=== PATIENT | male | born 1990 | race African-American/Black ===

== ENCOUNTER 2017-10-06 20:07 | Emergency (ER) | payer SELFPAY ==
[2017-10-06] MEDS ORDERED: Bacitracin Oint 1 GM U/D Packet TOP ONE (20:25)
[2017-10-06] MEDS ORDERED: Diphtheria,Pertussis(Acell),Tetanus Vaccine 0.5 ML Syringe IM ONE (20:25)
--- NOTE | 2017-10-06 20:30 | EDM.PDOC ---
ED HPI GENERAL MEDICAL PROBLEM - General Chief Complaint: Laceration Stated Complaint: INJURY TO HEAD Time Seen by Provider: 10/06/17 20:24 Source of Information: Reports: Patient History Limitations: Reports: No Limitations - History of Present Illness INITIAL COMMENTS - FREE TEXT/NARRATIVE: HISTORY AND PHYSICAL: History of present illness: Patient is a 27-year-old male who presents to the emergency room with complaints of a head injury after falling down approximately 5 feet of stairs. He states he tripped and fell down some stairs resulting in him hitting his head and a brief loss of consciousness. He does have a 2.5 cm laceration to the left upper forehead. Currently alert and oriented. Acting appropriately. Sure of last tetanus Review of systems: As per history of present illness and below otherwise all systems reviewed and negative. Past medical history: As per history of present illness and as reviewed below otherwise noncontributory. Surgical history: As per history of present illness and as reviewed below otherwise noncontributory. Social history: No reported history of drug or alcohol abuse. Family history: As per history of present illness and as reviewed below otherwise noncontributory. Physical exam: General: Well-developed and well-nourished 27-year-old -[place] male. Alert and oriented. Nontoxic appearing and in no acute distress. HEENT: No pain or tenderness with palpation, normocephalic, pupils equal and reactive bilaterally, negative for conjunctival pallor or scleral icterus, mucous membranes moist, throat clear, neck supple, nontender, trachea midline. No drooling or trismus noted. No meningeal signs. See skin for laceration details. Lungs: Clear to auscultation, breath sounds equal bilaterally, chest nontender. Heart: S1S2, regular rate and rhythm without overt murmur Abdomen: Soft, nondistended, nontender. Negative for masses or hepatosplenomegaly. Negative for costovertebral tenderness. Pelvis: Stable nontender. Genitourinary: Deferred. Rectal: Deferred. Skin: 2.5 cm laceration to left upper forehead. Otherwise skin is intact, warm, dry. No lesions or rashes noted. Extremities: Atraumatic, negative for cords or calf pain. Neurovascular unremarkable. C-spine/Back: No pinpoint vertebral tenderness upon palpation. No crepitus, step -offs or obvious deformities. Patient is ambulatory without difficulty or deficits. He denies any numbness or tingling to his distal extremities. Denies any urinary or fecal incontinence. Neuro: Awake, alert, oriented. Cranial nerves II through XII unremarkable. Cerebellum unremarkable. Motor and sensory unremarkable throughout. Exam nonfocal. Notes: Area was anesthetized with lidocaine. Wound care was completed. 5-0 nylon, #4 interrupted sutures. Patient tolerated well. Bacitracin dressing. Head CT results pending. Head CT shows no acute intracranial abnormalities. There is a small scalp hematoma and skin laceration over the left forehead. This information was shared with the patient. Suture care was reviewed. Head injury instructions were reviewed and discussed. Patient voices understanding and is agreeable to plan of care. He denies any further questions at this time. Diagnostics: Head CT Therapeutics: Lidocaine, bacitracin, Tdap Impression: Head injury Facial laceration Plan: 1. Keep the area clean and dry. Monitor for signs of infection. Sutures to be removed in 7-10 days. 2. Tylenol and/or ibuprofen as needed for pain management. Please review the head injury instructions that were printed and discussed with you. 3. Follow-up with your primary care provider in the next 1-2 days. Return to the ED as needed and as discussed. Definitive disposition and diagnosis as appropriate pending reevaluation and review of above. Onset: Today Duration: Minutes: Location: Reports: Head forehead Pain Score (Numeric/FACES): 3 - Related Data Allergies Allergy/AdvReac Type Severity Reaction Status Date / Time No Known Allergies Allergy Verified 10/06/17 20:21 Home Meds: Home Meds . [No Known Home Meds] 10/06/17 [History] Past Medical History - Past Health History Medical/Surgical History: Denies Medical/Surgical History Social & Family History - Family History Family Medical History: Noncontributory - Tobacco Use Smoking Status *Q: Current Every Day Smoker Years of Tobacco use: 10 Packs/Tins Daily: 1 - Recreational Drug Use Recreational Drug Use: No ED ROS GENERAL - Review of Systems Review Of Systems: ROS reveals no pertinent complaints other than HPI. ED EXAM, SKIN/RASH Exam: See Below (See dictation) ED SKIN PROCEDURES - Laceration/Wound Repair Head Lac/Wound length In cm: 2.5 Appearance: Linear, Clean Anesthetic Type: Local Local Anesthesia - Lidocaine (Xylocaine): 1% Plain Local Anesthetic Volume: 4cc Skin Prep: Chlorhexidine (Hibiciens), Saline, Sterile Drape Saline Irrigation (cc's): 25 Exploration/Debridement/Repair: Wound Explored, No Foreign Material Found Closed with: Sutures Suture Size: other (5-0) # of Sutures: 4 Suture Type: Nylon Sterile Dressing Applied: Provider Tetanus Status Addressed: Yes Complications: No Course - Vital Signs Last Recorded V/S: Last Vital Signs Temp 97.3 F 10/06/17 20:07 Pulse 98 10/06/17 20:07 Resp 18 10/06/17 20:07 BP 146/101 H 10/06/17 20:07 Pulse Ox 98 10/06/17 20:07 - Orders/Labs/Meds Orders: Active Orders 24 hr Category Date Time Status Vaccines to be Administered [RC] PER UNIT ROUTINE Care 10/06/17 20:26 Active Head wo Cont [CT] Stat Exams 10/06/17 20:25 Taken Meds: Medications Discontinued Medications Generic Name Dose Route Start Last Admin Trade Name Shaun PRN Reason Stop Dose Admin Bacitracin 1 dose 10/06/17 20:25 10/06/17 20:35 Bacitracin Oint 1 Gm TOP 10/06/17 20:26 1 dose ONETIME ONE Administration Diphtheria/Tetanus/Acell Pertussis 0.5 ml 10/06/17 20:25 10/06/17 20:35 Adacel IM 10/06/17 20:26 0.5 ml .ONCE ONE Administration Lidocaine HCl 5 ml 10/06/17 20:25 10/06/17 20:35 Xylocaine-Mpf 1% INJECT 10/06/17 20:26 5 ml ONETIME ONE Administration Departure - Departure Time of Disposition: 21:26 Disposition: Home, Self-Care 01 Clinical Impression: Head injury Qualifiers: Encounter type: initial encounter Qualified Code(s): S09.90XA - Unspecified injury of head, initial encounter Facial laceration Qualifiers: Encounter type: initial encounter Qualified Code(s): S01.81XA - Laceration without foreign body of other part of head, initial encounter - Discharge Information Instructions: Head Injury, Adult, [id number], Facial Laceration, [id number] Referrals: PCP,None [Primary Care Provider] - Forms: ED Department Discharge Additional Instructions: The following information is given to patients seen in the emergency department who are being discharged to home. This information is to outline your options for follow-up care. We provide all patients seen in our emergency department with a follow-up referral. The need for follow-up, as well as the timing and circumstances, are variable depending upon the specifics of your emergency department visit. If you don't have a primary care physician on staff, we will provide you with a referral. We always advise you to contact your personal physician following an emergency department visit to inform them of the circumstance of the visit and for follow-up with them and/or the need for any referrals to a consulting specialist. The emergency department will also refer you to a specialist when appropriate. This referral assures that you have the opportunity for follow-up care with a specialist. All of these measure are taken in an effort to provide you with optimal care, which includes your follow-up. Under all circumstances we always encourage you to contact your private physician who remains a resource for coordinating your care. When calling for follow-up care, please make the office aware that this follow-up is from your recent emergency room visit. If for any reason you are refused follow-up, please contact the [facility] at and asked to speak to the emergency department charge nurse. [facility] [address] [place] [id number] 1. Keep the area clean and dry. Monitor for signs of infection. Sutures to be removed in 7-10 days. May apply Mederma ([id number]) nightly after your sutures come out. 2. Tylenol and/or ibuprofen as needed for pain management. Please review the head injury instructions that were printed and discussed with you. 3. Follow-up with your primary care provider in the next 1-2 days. Return to the ED as needed and as discussed. - My Orders Last 24 Hours: My Active Orders 10/06/17 20:25 Head wo Cont [CT] Stat 10/06/17 20:26 Vaccines to be Administered [RC] PER UNIT ROUTINE - Assessment/Plan Last 24 Hours: My Active Orders 06/01/18 20:25 Head wo Cont [CT] Stat 10/06/17 20:26 Vaccines to be Administered [RC] PER UNIT ROUTINE
--- NOTE | 2017-10-09 08:31 | CT ---
EXAM DATE: 10/06/17 PATIENT'S AGE: 27 Patient: JORDEN DAVIDSON Facility: [place], [place] Site . Site : 1990 Study: CT Head [id number]/1/2018 9:12:01 PM Ordering Physician: Doctor Morales Final Report: INDICATION: Fall today, laceration to forehead LOC around 20sec. CT HEAD WITHOUT CONTRAST TECHNIQUE: Multiple axial CT images were performed through the head without intravenous contrast administration. COMPARISON: No previous studies are currently available for comparison. FINDINGS: No acute intracranial hemorrhage is identified. No extra-axial collections are evident and there is no mass effect or midline shift. Ventricles are normal in size and configuration. 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 Brain parenchyma otherwise appears normal with unremarkable holbrook-white differentiation. There is a small scalp hematoma and skin laceration over the left forehead. Osseous structures are within normal limits and no fractures are seen. Included portions of the paranasal sinuses show minimal mucosal thickening in the right sphenoid and bilateral ethmoid and maxillary sinuses consistent with minimal sinusitis. The mastoid air cells are normally aerated. IMPRESSION: 1. No acute intracranial abnormality identified. 2. Small scalp hematoma and skin laceration over the left forehead. No fracture identified. 3. Small area of chronic encephalomalacia in the inferomedial right frontal lobe. COY CONTEH MD [employer] Dictated by Santos Conteh MD @ 10/06/2017 9:22:16 PM Dictated by: Santos Conteh MD @ 10/06/2017 21:22:31 (Electronic Signature) Report Signed by Proxy. [facility]
== END 2017-10-06 21:39 | disposition home or self-care (01) ==
LOC: MW.ED 20:07
DX: S01.81XA Laceration without foreign body of other part of head, initial encounter (principal); S09.90XA Unspecified injury of head, initial encounter; F17.210 Nicotine dependence, cigarettes, uncomplicated; W10.9XXA Fall (on) (from) unspecified stairs and steps, initial encounter; Z23 Encounter for immunization
CPT/HCPCS: 70450; 70450-26; 90715; 99283-25